=== PATIENT | female | born 1985 | race Caucasian/White ===

== ENCOUNTER 2016-12-04 19:05 | Emergency (ER) | payer MEDICAID ==
[~2016-12-04] VITALS: Ht 177.8 cm; Wt 92.5 kg
[2016-12-04] MEDS ORDERED: METH10SO PO (19:37)
[2016-12-04 20:28] VITALS: BP 125/78
[2016-12-04] MEDS ORDERED: SULFAMETHOX/TRIMETH DS 800-160 MG/TABLET PO ONE (20:30)
[2016-12-04] MEDS ORDERED: ACETAMINOPHEN 325 MG TABLET PO ONE (20:30)
[2016-12-04] MEDS ORDERED: CEPHALEXIN MONOHYDRATE 500 MG CAPSULE PO ONE (20:30)
== END 2016-12-04 21:16 | disposition home or self-care (01) ==
LOC: EMS 19:11
DX: L03.116 Cellulitis of left lower limb (principal); L02.416 Cutaneous abscess of left lower limb; F17.210 Nicotine dependence, cigarettes, uncomplicated
CPT/HCPCS: 99284